=== PATIENT | female | born 1955 | race Caucasian/White ===

== ENCOUNTER 2016-03-29 12:39 | Emergency (ER) | payer SELFPAY ==
[~2016-03-29] VITALS: Wt 64.0 kg
[~2016-03-29 12:39] MED LIST: IBUP-1542 PO; METF500T4 PO
== END 2016-03-29 16:55 | disposition left against medical advice (07) ==
LOC: E/R 12:39
DX: Z53.21 Procedure and treatment not carried out due to patient leaving prior to being seen by health care provider (principal)
CPT/HCPCS: 82962